=== PATIENT | male | born 1975 | race Caucasian/White ===

== ENCOUNTER 2019-06-24 12:05 | Inpatient (IN) | payer OTHER ==
[2019-06-24] MEDS ORDERED: morphine CARPU-JECT 4 MG/1 ML DISP.SYRIN IVPUSH ONE ×3 (12:38→18:09)
--- NOTE | 2019-06-24 12:45 | PDOC ---
History of Present Illness - General Chief Complaint: Pain Stated Complaint: ANAL PAIN Time Seen by Provider: 06/24/19 12:20 History Source: Patient Exam Limitations: No Limitations - History of Present Illness Initial Comments: 06/24/19 12:39 HISTORY OF PRESENT ILLNESS: 43-year-old male denies medical history presents emergency department for evaluation of perirectal pain worsening over the past 4 days. Patient has been using [id number] hydrocortisone cream with lidocaine which is been mildly successful in pain relief. Patient reports pain returns after approximately 1.5 hours. Reports having hard stools over the past 3 days. Patient has not had to strain to move his bowels. Patient reports subjective fevers. I present patient is unable to sit down due to pain. He denies any rectal bleeding. No recent travel or sick contacts. PAST MEDICAL HISTORY: Denies past medical history SURGICAL HISTORY: Denies ALLERGIES: No known drug allergies REVIEW OF SYSTEMS General/Constitutional: Denies fever or chills. Denies weakness, weight change. HEENT: Denies change in vision. Denies ear pain or discharge. Denies sore throat. Cardiovascular: Denies chest pain or shortness of breath. Respiratory: Denies cough, wheezing, or hemoptysis. Gastrointestinal: see HPI Genitourinary: Denies dysuria, frequency, or change in urination. Musculoskeletal: Denies joint or muscle swelling or pain. Denies neck or back pain. Skin and breasts: Denies rash or easy bruising. Neurologic: Denies headache, vertigo, loss of consciousness, or loss of sensation. Psychiatric: Denies depression or anxiety. Endocrine: Denies increased thirst. Denies abnormal weight change. Hematologic/Lymphatic: Denies anemia, easy bleeding, or history of blood clots. Allergic/Immunologic: Denies hives or skin allergy. Denies latex allergy. PHYSICAL EXAM General Appearance: Well-appearing, appropriately dressed. No apparent distress , no intoxication. Respiratory/Chest: Lungs CTAB. No shortness of breath, chest tenderness, respiratory distress, accessory muscle use. No crackles, rales, rhonchi, stridor , wheezing, dullness Cardiovascular: RRR. S1, S2. No JVD, murmur, bradycardia, tachycardia. Vascular Pulses: Dorsalis-Pedis (R): 2+, Dorsalis-Pedis (L): 2+ Gastrointestinal/Abdominal: Normal bowel sounds. Abdomen soft, non-distended. No tenderness or rebound tenderness. No organomegaly, pulsatile mass, guarding, hernia, hepatomegaly, splenomegaly. Rectal: External hemorrhoid present at the 9 o'clock position. No evidence of fibrosis noted. Swelling present to the gluteal fold over the left buttock. Approximate 0.5 palpable mass present at the 9 o'clock position approximately 1 cm from the hemorrhoid. Increased tenderness upon palpation. No fluctuance noted. No internal hemorrhoids have been palpated. Prostate is within normal limits. Lymphatic: Left perirecta lymphadenopathy with tenderness. 06/24/19 12:46 06/24/19 12:59 Past History - Past Medical History Allergies/Adverse Reactions: Allergies Allergy/AdvReac Type Severity Reaction Status Date / Time No Known Allergies Allergy Verified 06/24/19 12:11 Home Medications: Ambulatory Orders NK [No Known Home Medication] 06/24/19 COPD: No - Suicide/Smoking/Psychosocial Hx Smoking History: Never smoked *Physical Exam - Vital Signs Last Vital Signs Temp Pulse Resp BP Pulse Ox 98.9 F 100 H 18 147/101 H 96 06/24/19 12:13 06/24/19 12:13 06/24/19 12:13 06/24/19 12:13 06/24/19 12:13 ED Treatment Course - LABORATORY CBC & Chemistry Diagram: 06/25/19 08:15 06/25/19 08:15 Medical Decision Making - Medical Decision Making 06/24/19 12:45 A/P: 43-year-old male with perirectal pain for 4 days Differential diagnoses includes hemorrhoid with potential abscess CBC, BMP Morphine [address] pelvis with IV contrast 06/24/19 14:18 CT scan is read by Dr. Parker: There is a small air and fluid collection slightly posterior to the anus measuring approximately 2.0 x 0.8 x 1.2 cm. This does correspond to the clinical history of a small abscess. No pelvic masses or fluid collections are identified. There is no evidence of pelvic lymphadenopathy. There is a 2 cm cyst within the lower pole of the right kidney. I will call surgery for consult. 06/24/19 15:27 Second page placed. 06/24/19 15:53 Case is been discussed with Dr. Gruber will come to the emergency department to evaluate patient. Morphine 4 mg IV now 06/24/19 20:10 Case has been discussed with Dr. Gruber. Admit to hospitalist with surgery consult. Blood cx Unasyn 3g IV Admit 06/24/19 21:04 Case is been discussed with Dr. Tomlinson of the hospitalist service who accepts patient for inpatient admission. *DC/Admit/Observation/Transfer Diagnosis at time of Disposition: Jolanta-rectal abscess - Discharge Dispostion Condition at time of disposition: Good Decision to Admit order: Yes - Referrals - Patient Instructions - Post Discharge Activity
[2019-06-24] MEDS ORDERED: morphine SULFATE 4 MG/ML VIAL ONE ×3 (12:47→18:21)
[2019-06-24 13:01] LABS: BASO % 0.6 % (0-2.0); EOS % 1.3 % (0-4.5); HEMATOCRIT 45.9 % (35.4-49); LYMPH % 20.3 % (8-40); MCHC 34.9 g/dl (32.0-35.9); MEAN CELL VOLUME 88.7 fl (80-96); MEAN PLT VOLUME 8.2 fl (7.5-11.1); MONO % 9.5 % (3.8-10.2); NEUT % 68.3 % (42.8-82.8); PLATELET COUNT 271 K/MM3 (134-434); RBC 5.18 M/mm3 (4.00-5.60); RDW 12.4 % (11.9-15.9); WHITE BLOOD COUNT 9.7 K/mm3 (4.0-10.0)
[2019-06-24 13:19] LABS: BLOOD UREA NITROGEN 11.4 mg/dL (7-18); CALCIUM 9.9 mg/dL (8.5-10.1); CREATININE 0.9 mg/dL (0.55-1.3); POTASSIUM 4.3 mmol/L (3.5-5.1)
[2019-06-24] MEDS ORDERED: AMPICILLIN NA/SULBACTAM NA 3 GM in SODIUM CHLORIDE 100 ML IVPB ONE (20:07)
--- NOTE | 2019-06-24 20:55 | CONSULT ---
Consult Consult Specialty:: General surgery Reason for Consultation:: perianal abscess vs hemorrhoid - History of Present Illness Chief Complaint: perianal pain History of Present Illness: 43 yo male PMH obesity depression and anxiety presents emergency department for evaluation of perirectal pain worsening over the past 4 days. Patient has been using kmft-pig-gzixyol hydrocortisone cream with lidocaine which is been mildly successful in pain relief. Patient reports pain returns after approximately 1.5 hours. Reports having hard stools over the past 3 days. Patient has not had to strain to move his bowels. Patient reports subjective fevers. I present patient is unable to sit down due to pain. He denies any rectal bleeding. we were called to assess. - History Source History Provided By: Patient, Medical Record Limitations to Obtaining History: No Limitations - Past Medical History Additional Medical History: obesity - Smoking History Smoking history: Never smoked Home Medications - Allergies Allergies/Adverse Reactions: Allergies Allergy/AdvReac Type Severity Reaction Status Date / Time No Known Allergies Allergy Verified 06/24/19 12:11 - Home Medications Home Medications: Ambulatory Orders NK [No Known Home Medication] 06/24/19 Review of Systems - Review of Systems Constitutional: denies: Chills, Fever Eyes: denies: Blind Spots, Recent Change in Vision HENT: denies: Difficult Swallowing, Throat Pain Neck: denies: Decreased ROM, Tenderness Cardiovascular: denies: Chest Pain, Palpitations Respiratory: denies: Cough, SOB Gastrointestinal: reports: Constipation. denies: Abdominal Pain, Diarrhea, Nausea Genitourinary: denies: Discharge, Dysuria Breasts: reports: No Symptoms Reported. denies: Pain Musculoskeletal: denies: Joint Swelling, Muscle Pain Integumentary: denies: Lesions, Rash Neurological: denies: Seizure, Syncope Endocrine: denies: Unexplained Weight Gain, Unexplained Weight Loss Hematology/Lymphatic: denies: Easily Bruised, Excessive Bleeding Psychiatric: reports: Anxiety, Depression Physical Exam Vital Signs: Vital Signs Temperature 98.5 F 06/24/19 15:34 Pulse Rate 88 06/24/19 15:34 Respiratory Rate 06/24/19 15:34 Blood Pressure 133/68 06/24/19 15:34 O2 Sat by Pulse Oximetry (%) 100 06/24/19 15:34 Constitutional: Yes: Well Nourished, No Distress, Calm, Obese Eyes: Yes: Conjunctiva Clear, EOM Intact HENT: Yes: Atraumatic, Normocephalic Neck: Yes: Supple, Trachea Midline Cardiovascular: Yes: Regular Rate and Rhythm, S1, S2 Respiratory: Yes: Regular, CTA Bilaterally Gastrointestinal: Yes: Normal Bowel Sounds, Soft, Abdomen, Obese. No: Tenderness ...Rectal Exam: Yes: Hemorrhoids/External, Hemorrhoids/Internal, Induration, Sphincter Tone Normal. No: Erythema, Inflammation, Mass Renal/: No: CVA Tenderness - Left, CVA Tenderness - Right Breast(s): No: Mass, Skin Changes Musculoskeletal: No: Joint Stiffness, Joint Swelling Extremities: No: Cool, Cyanosis Edema: No Peripheral Pulses WNL: Yes Integumentary: No: Jaundice, Rash Neurological: Yes: Alert, Oriented Psychiatric: Yes: Alert, Oriented Labs: CBC, BMP 06/24/19 12:45 06/24/19 12:45 Imaging - Results Cat Scan: Report Reviewed, Image Reviewed Problem List - Problems (1) Internal thrombosed hemorrhoids Assessment/Plan: 43yo male with thrombosed hemorrhoid left perianal area Bedside procedure adequate analgesia GI for bowel regimen - (fiber and water, topical lidocaine, colace?) Discussed with patient risks, benefits and alternatives of laparoscopic possible open ectomy, including but not limited to bleeding, infection, injury to adjacent structures, leak or injury, intraabdominal abscess, incisional hernia, need for further procedures, ; alternatives include antibiotics, delayed or no surgery - risks of this include failure of nonoperative therapy, perforation, sepsis, recurrence, . Patient desires to proceed with operation - will take to OR for above. Informed consent signed for same. Remove dressing with first bowel movement Sits baths X2 weeks Discharge at the discretion of the pirmary team Code(s): K64.5 - PERIANAL VENOUS THROMBOSIS (2) Thrombosed external hemorrhoid Code(s): K64.5 - PERIANAL VENOUS THROMBOSIS (3) Perianal pain Code(s): K62.89 - OTHER SPECIFIED DISEASES OF ANUS AND RECTUM (4) Obesity (BMI 30-39.9) Code(s): E66.9 - OBESITY, UNSPECIFIED
--- NOTE | 2019-06-24 20:55 | PROC ---
Incision and Drainage Indication/Location: painful perianal mass Risks and Benefits Explained: Yes Consent on Chart: Yes Betadine cleansed: Yes Anesthesia: 1% Lidocaine w/ Epi Blade Size: 15 Drainage: hematoma, not really purulent Irrigated with Normal Saline: Yes Plain packing: Yes Sterile Dressing Applied: Yes - Remarks Remarks: left perianal, 10 oclock position , clot expressed, thrombosed hemoroid
--- NOTE | 2019-06-24 21:29 | PN ---
Teaching Attending Note ATTENDING PHYSICIAN STATEMENT I saw and evaluated the patient. I reviewed the resident's note and discussed the case with the resident. I agree with the resident's findings and plan as documented. Seen and examined; please refer to resident note for further history. Found to have perirectal abscess; being drained by Dr. Gruber. Hemodynamically stable. VS, labs, imaging reviewed NAD, AAO, resting in bed NC AT EOMI PERRLA RRR s1/2 Lungs CTAB, w/ sym exp NT ND +BS CN2-12 wnl, no fnd EKG reviewed CT pelvis reviewed; small air and fluid collection posterior to anus c/w abscess ASSESSMENT AND PLAN: # Perianal abscess POD #0 -Dr. Gruber to eval for bedside vs. OR drainage. Following abx recs. Monitor on floor. Pain control, npo. Consider triggering factors (ie DM likely and # DM with hyperglycemia likely -gluc 200s with obesity, etc. Check A1c. Fsg monitor; if persistently elevated SSI (keep in mind insulin naieve so low dose). Lipids, etc. can be done OP. Consider Metformin on DC, # Obesity (BMI>35) # Hemorrhoids (noted; FU OP with sgy) Full Code
[2019-06-24] MEDS ORDERED: ACETAMINOPHEN 325 MG TABLET (FP) PO PRN (22:07)
[2019-06-24] MEDS ORDERED: LIDOCAINE 1%/EPI 1:100000 (20 ML MULTI DOSE VIAL) IJ ONE (22:10)
[2019-06-24] MEDS ORDERED: LIDOCAINE 1%/EPI 1:100000 (20 ML MULTI DOSE VIAL) ONE (22:14)
[2019-06-24] MEDS ORDERED: LORazepam 2 MG/ML SDV VIAL IVPUSH ONE (22:15)
[2019-06-24] MEDS ORDERED: LORazepam 2 MG/ML SDV VIAL ONE (22:17)
--- NOTE | 2019-06-24 22:51 | HP ---
CHIEF COMPLAINT: Anal pain PCP: HISTORY OF PRESENT ILLNESS: 43 y/o M, pmh of previous hemorrhoid-last week, presents to the ED c/o of non- radiating, constant, pain and tenderness in the phyllis-rectal region of 4 days duration, that has worsened since onset, accompanied by chills this morning. Pt said that the pain started on friday and he had assumed it was an hemorrhoid and treated it conservatively; however, the symptoms persisted and worsened which prompted him to come to the ED. He denies sob, chest pain, back pain, drainage, pus, difficulty passing bowel, melena, hematochezia. ROS is negative. ER course was notable for: (1) Unasyn given (2)CT w/ IV contrast- air and fluid collection 2x.8x1.2 (3)Morphine given Recent Travel: denies PAST MEDICAL HISTORY: denies PAST SURGICAL HISTORY: Gallbladder removal 2018 Hernia repair- 10 years ago Social History: Smoking: denies Alcohol: occasional Drugs: ayad Family History: Mother- DM Allergies No Known Allergies Allergy (Verified 06/24/19 12:11) HOME MEDICATIONS: Home Medications Medication Instructions Recorded NK [No Known Home Medication] 06/24/19 REVIEW OF SYSTEMS CONSTITUTIONAL: Admits: chills, Absent: fever, diaphoresis, generalized weakness, malaise, loss of appetite, weight change CARDIOVASCULAR: Absent: chest pain, syncope, palpitations, irregular heart rate, lightheadedness , peripheral edema RESPIRATORY: Absent: cough, shortness of breath, dyspnea with exertion, orthopnea, wheezing, stridor, hemoptysis GASTROINTESTINAL: Absent: abdominal pain, abdominal distension, nausea, vomiting, diarrhea, constipation, melena, hematochezia GENITOURINARY: Admits: Phyllis-rectal tenderness, redness, swelling Absent: dysuria, frequency, urgency, hesitancy, hematuria, flank pain, MUSCULOSKELETAL: Absent: myalgia, arthralgia, joint swelling, back pain, neck pain SKIN: Absent: rash, itching, pallor NEUROLOGIC: Absent: headache, bladder or bowel incontinence PSYCHIATRIC: Absent: anxiety PHYSICAL EXAMINATION Vital Signs - 24 hr Last Vital Signs Temp Pulse Resp BP Pulse Ox 98.5 F 88 19 127/68 100 06/24/19 22:38 06/24/19 22:38 06/24/19 22:38 06/24/19 22:38 06/24/19 22:38 GENERAL: Awake, alert, and fully oriented, in no acute distress. EYES: Pupils equal, round and reactive to light, extraocular movements intact LUNGS: Breath sounds equal, clear to auscultation bilaterally. No wheezes, and no crackles. HEART: Regular rate and rhythm, normal S1 and S2 without murmur, rub or gallop. ABDOMEN: Soft, nontender, not distended, normoactive bowel sounds, no guarding, no rebound, no masses. No hepatomegaly or splenomegaly. Rectal: Large hemorrhoid present at the 9 o'clock position, left buttocks containing swelling including the gluteal fold. Palpable mass present at the 9 o 'clock position 1 cm from the hemorrhoid. Increased tenderness upon palpation. No fluctuance, no drainage noted. PSYCHIATRIC: Cooperative. Good eye contact. Appropriate mood and affect. Laboratory Results - last 24 hr CBC, BMP 06/24/19 12:45 06/24/19 12:45 ASSESSMENT/PLAN: 43 y/o M, pmh of previous hemorrhoid-last week, presents to the ED w/ a perirectal abscess #Perirectal Abscess CT pelvis w/ contrast- small air and fluid collection posterior to the anus 2x.8x1.2, small abscess Case discussed w/ Dr. Gruber If superficial on evaluation- will be drained bedside If deep on evaluation- will go to the OR Continue Unasyn Metronidazole 500 mg given LR 75 mls/hr #Hyperglycemia f/u A1c If A1c elevated- uncontrolled gluc can be attributed to the perirectal abscess Recommend educating pt on diet control, weight loss and exercise f/u PCP for DM workup #DVT ppx SCDs b/l legs FEN: NPO due to possible surgery in am Dispo: f/u on surgery decision for drainage, symptomatic management Visit type - Emergency Visit Emergency Visit: Yes ED Registration Date: 06/24/19 Care time: The patient presented to the Emergency Department on the above date and was hospitalized for further evaluation of their emergent condition. - New Patient This patient is new to me today: Yes Date on this admission: 06/28/19 - Critical Care Critical Care patient: No ATTENDING PHYSICIAN STATEMENT I saw and evaluated the patient. I reviewed the resident's note and discussed the case with the resident. I agree with the resident's findings and plan as documented. SUBJECTIVE: OBJECTIVE: ASSESSMENT AND PLAN:
[2019-06-25] MEDS: AMPICILLIN NA/SULBACTAM NA 3 GM in SODIUM CHLORIDE 100 ML IVPB SCH ×2 (02:48→09:16)
[2019-06-25 05:20] VITALS: BMI 35.2
[2019-06-25] MEDS ORDERED: LACTATED RINGERS SOLUTION 1,000 ML/1,000 ML INFUS.BAG IV SCH (06:00)
--- NOTE | 2019-06-25 06:40 | PN ---
Physical Exam: SUBJECTIVE: Patient seen and examined OBJECTIVE: Vital Signs Period Temp Pulse Resp BP Sys/Hough Pulse Ox Last 24 Hr 98.5 F-99.5 F 88-101 18-20 127-147/68-101 96-100 GENERAL: The patient is awake, alert, and fully oriented, in no acute distress. HEAD: Normal with no signs of trauma. EYES: PERRL, extraocular movements intact, sclera anicteric, conjunctiva clear. No ptosis. ENT: Ears normal, nares patent, oropharynx clear without exudates, moist mucous membranes. NECK: Trachea midline, full range of motion, supple. LUNGS: Breath sounds equal, clear to auscultation bilaterally, no wheezes, no crackles, no accessory muscle use. HEART: Regular rate and rhythm, S1, S2 without murmur, rub or gallop. ABDOMEN: Soft, nontender, nondistended, normoactive bowel sounds, no guarding, no rebound, no hepatosplenomegaly, no masses. EXTREMITIES: 2+ pulses, warm, well-perfused, no edema. NEUROLOGICAL: Cranial nerves II through XII grossly intact. Normal speech, gait not observed. PSYCH: Normal mood, normal affect. SKIN: Warm, dry, normal turgor, no rashes or lesions noted Laboratory Results - last 24 hr 06/24/19 06/24/19 12:45 12:45 WBC 9.7 RBC 5.18 Hgb 16.0 Hct 45.9 MCV 88.7 MCH 31.0 MCHC 34.9 RDW 12.4 Plt Count 271 MPV 8.2 Absolute Neuts (auto) 6.6 Neutrophils % 68.3 Lymphocytes % 20.3 Monocytes % 9.5 Eosinophils % 1.3 Basophils % 0.6 Nucleated RBC % 0 Sodium 137 Potassium 4.3 Chloride 102 Carbon Dioxide 26 Anion Gap 10 BUN 11.4 Creatinine 0.9 Est GFR (CKD-EPI)AfAm 119.13 Est GFR (CKD-EPI)NonAf 102.79 Random Glucose 292 H Calcium 9.9 Active Medications Generic Name Dose Route Start Last Admin Trade Name Freq PRN Reason Stop Dose Admin Acetaminophen 650 mg 06/24/19 22:07 Tylenol - PO Q4H PRN PAIN LEVEL 1-5 Ampicillin Sodium/Sulbactam 100 mls @ 200 mls/hr 06/25/19 03:00 06/25/19 02: 48 Sodium 3 gm/ Sodium Chloride IVPB 200 mls/hr Q6H-IV BENJAMÍN Administration Lactated Ringer's 1,000 ml in 1,000 mls @ 75 mls/hr 06/25/19 06:00 Lactated Ringers Solution IV ASDIR BENJAMÍN Morphine Sulfate 2 mg 06/24/19 22:07 Morphine Sulfate IVPUSH Q4H PRN PAIN LEVEL 6-10 ASSESSMENT/PLAN: 43 y/o M, PMH of previous hemorrhoid-last week, presents to the ED c/o of non- radiating, constant, pain and tenderness in the phyllis-rectal region of 4 days duration, that has worsened since onset, accompanied by chills this morning. Pt said that the pain started on friday and he had assumed it was an hemorrhoid and treated it conservatively; however, the symptoms persisted and worsened which prompted him to come to the ED. He denies sob, chest pain, back pain, drainage, pus, difficulty passing bowel, melena, hematochezia. ROS is negative. ER course was notable for: (1) Unasyn given (2)CT w/ IV contrast- air and fluid collection 2x.8x1.2 (3)Morphine given PAST SURGICAL HISTORY: Gallbladder removal 2018 Hernia repair- 10 years ago Social History: Smoking: denies Alcohol: occasional Drugs: denies 43 y/o M, pmh of previous hemorrhoid-last week, presents to the ED w/ a perirectal abscess #Perirectal Abscess - CT pelvis w/ contrast- small air and fluid collection posterior to the anus 2x.8x1.2, small abscess - Case discussed w/ Dr. Gruber, if superficial: drain at bedside, if deep:drain in ER - Continue Unasyn - Metronidazole 500 mg given - R/L 75 mls/hr #Hyperglycemia - HbA1c pending - f/u PCP for DM workup #DVT PE - SCDs #FEN: - NPO due to possible surgery in am #Dispo - F/U on surgery decision for drainage, symptomatic management ATTENDING PHYSICIAN STATEMENT I saw and evaluated the patient. I reviewed the resident's note and discussed the case with the resident. I agree with the resident's findings and plan as documented. SUBJECTIVE: OBJECTIVE: ASSESSMENT AND PLAN:
--- NOTE | 2019-06-25 07:47 | PN ---
Teaching Attending Note Name of Resident: Jamarcus Dangelo ATTENDING PHYSICIAN STATEMENT I saw and evaluated the patient. I reviewed the resident's note and discussed the case with the resident. I agree with the resident's findings and plan as documented. SUBJECTIVE: Still c/o rectal pain but less OBJECTIVE: Vital Signs Temperature 99.5 F 06/24/19 22:45 Pulse Rate 101 H 06/24/19 22:45 Respiratory Rate 20 06/24/19 22:45 Blood Pressure 135/87 06/24/19 22:45 O2 Sat by Pulse Oximetry (%) 100 06/24/19 22:38 HEENT: Mm moist, no anemia, PERRLA EOMI NECK: No JVd No Bruit CHEST: CTA B/L CVS: s/s2 R no m/g/r ABD: No distention non tender EXT: No halley afeet, no calf tenderness SACK LIFTER: AOX3 non focal Rectal Exam; s/p Hemmorhoidectomy CBC, BMP 06/25/19 08:15 06/25/19 08:15 Active Medications Acetaminophen (Tylenol -) 650 mg PO Q4H PRN PRN Reason: PAIN LEVEL 1-5 Ampicillin Sodium/Sulbactam (Sodium 3 gm/ Sodium Chloride) 100 mls @ 200 mls/ hr IVPB Q6H-IV BENJAMÍN Last Admin: 06/25/19 02:48 Dose: 200 mls/hr Lactated Ringer's (Lactated Ringers Solution) 1,000 ml in 1,000 mls @ 75 mls/ hr IV ASDIR BENJAMÍN Last Admin: 06/25/19 06:38 Dose: 75 mls/hr Morphine Sulfate (Morphine Sulfate) 2 mg IVPUSH Q4H PRN PRN Reason: PAIN LEVEL 6-10 ASSESSMENT AND PLAN:43 y/o M, PMH of previous hemorrhoid-last week, presents to the ED c/o of non-radiating, constant, pain and tenderness in the phyllis-rectal region of 4 days duration, that has worsened since onset, accompanied by chills this morning Problem List - Problems (1) Thrombosed external hemorrhoid Assessment/Plan: as per operating surgeon patient is cleared to Dc home on Laxative and bowel regimen add Coliace and miralax add Motrin for pain consider short course of augmentin or Keflex F/U Surgery Dc order and patient will F/U with his PMD/ Surgery in a wk. Code(s): K64.5 - PERIANAL VENOUS THROMBOSIS (2) Obesity (BMI 30-39.9) Assessment/Plan: wrt reduction as out patient Code(s): E66.9 - OBESITY, UNSPECIFIED (3) New onset type 2 diabetes mellitus Assessment/Plan: Low Glycemic diet F/U HBA1C add Metformin 500 mg BID Code(s): E11.9 - TYPE 2 DIABETES MELLITUS WITHOUT COMPLICATIONS
[2019-06-25 08:58] LABS: BASO % 0.4 % (0-2.0); HEMATOCRIT 41.8 % (35.4-49); HEMOGLOBIN 14.6 GM/dL (11.7-16.9); LYMPH % 16.2 % (8-40); MCH 31.1 pg (25.7-33.7); MEAN CELL VOLUME 88.6 fl (80-96); MEAN PLT VOLUME 8.1 fl (7.5-11.1); MONO % 9.8 % (3.8-10.2); NEUT % 72.6 % (42.8-82.8); PLATELET COUNT 256 K/MM3 (134-434); RBC 4.72 M/mm3 (4.00-5.60); RDW 12.4 % (11.9-15.9); WHITE BLOOD COUNT 9.2 K/mm3 (4.0-10.0)
[2019-06-25] MEDS ORDERED: PT OWN MED DRAWER 7, Y5N ONE (09:38)
[2019-06-25 09:43] LABS: ALBUMIN 3.7 g/dl (3.4-5.0); BILIRUBIN,TOTAL 2.1 mg/dL (0.2-1); BLOOD UREA NITROGEN 8.6 mg/dL (7-18); CALCIUM 9.3 mg/dL (8.5-10.1); CREATININE 0.9 mg/dL (0.55-1.3); TOT PROT 7.1 g/dl (6.4-8.2)
[2019-06-25] MEDS: MORPHINE SULFATE 2 MG/ML VIAL IVPUSH PRN ×2 (12:03→16:00)
[2019-06-25] MEDS ORDERED: IBUPROFEN 600 MG TABLET (FP) PO PRN (12:39)
[2019-06-25] MEDS ORDERED: metFORMIN HCL 500 MG TABLET (FP) PO SCH (16:30)
[2019-06-25] MEDS ORDERED: AMOX TR/POT CLAV 875MG/125MG TABLETS (FP) PO SCH (17:30)
--- NOTE | 2019-06-25 17:45 | DS ---
Physical Exam: SUBJECTIVE: Patient seen and examined by the bedside. AOx3 OBJECTIVE: Vital Signs Period Temp Pulse Resp BP Sys/Hough Pulse Ox Last 24 Hr 98.1 F-99.5 F 88-101 19-20 127-137/68-87 100-100 PHYSICAL EXAM GENERAL: The patient is awake, alert, and fully oriented, in pain HEAD: Normal with no signs of trauma. EYES: PERRL, extraocular movements intact, sclera anicteric, conjunctiva clear. ENT: Ears normal, nares patent, oropharynx clear without exudates, moist mucous membranes. NECK: Trachea midline, full range of motion, supple. LUNGS: Breath sounds equal, clear to auscultation bilaterally, no wheezes, no crackles, no accessory muscle use. HEART: Regular rate and rhythm, S1, S2 without murmur, rub or gallop. ABDOMEN: Soft, nontender, nondistended, normoactive bowel sounds, no guarding, no rebound, no hepatosplenomegaly, no masses. Pain in phyllis-anal area 9/10, bandage over area. EXTREMITIES: 2+ pulses, warm, well-perfused, no edema. NEUROLOGICAL: Cranial nerves II through XII grossly intact. Normal speech, gait not observed. PSYCH: Normal mood, normal affect. SKIN: Warm, dry, normal turgor, no rashes or lesions noted. LABS Laboratory Results - last 24 hr 06/25/19 06/25/19 06/25/19 08:15 08:15 08:15 WBC 9.2 RBC 4.72 Hgb 14.6 Hct 41.8 MCV 88.6 MCH 31.1 MCHC 35.0 RDW 12.4 Plt Count 256 MPV 8.1 Absolute Neuts (auto) 6.7 Neutrophils % 72.6 Lymphocytes % 16.2 D Monocytes % 9.8 Eosinophils % 1.0 Basophils % 0.4 Nucleated RBC % 0 Sodium 135 L Potassium 4.0 Chloride 101 Carbon Dioxide 27 Anion Gap 7 L BUN 8.6 Creatinine 0.9 Est GFR (CKD-EPI)AfAm 119.13 Est GFR (CKD-EPI)NonAf 102.79 Random Glucose 310 H* Hemoglobin A1c % 11.1 H Calcium 9.3 Total Bilirubin 2.1 H AST 30 ALT 66 H Alkaline Phosphatase 115 Total Protein 7.1 Albumin 3.7 HOSPITAL COURSE: Date of Admission:06/24/19 43 y/o M, PMH of previous hemorrhoid-last week, presents to ER complaining of of non-radiating, constant, pain and tenderness in the perianal region for 4 days, accompanied by chills this morning. Denies sob, chest pain, back pain, drainage, pus, melena, hematochezia. ER course: (1) Unasyn, Flagyl (2) CT w contrast: air and fluid collection 2x.8x1.2 (3) Morphine Date of Discharge: 06/25/19 43 y/o M, pmh of previous hemorrhoid-last week, presents to the ED w/ a perirectal abscess #Perirectal Abscess - Drained at bedside - CT w contrast: air and fluid collection 2x.8x1.2 - Unasyn - R/L 75 mls/hr #Hyperglycemia - Random glucose 292, 310 - HbA1c pending - F/U outpatient for DM management plan #DVT PE - SCDs #FEN: - regular diet Discharge Summary Reason For Visit: PERIRECTAL ABSCESS Current Active Problems Internal thrombosed hemorrhoids (Acute) New onset type 2 diabetes mellitus (Acute) Obesity (BMI 30-39.9) (Acute) Perianal pain (Acute) Thrombosed external hemorrhoid (Acute) Condition: Good - Instructions Diet, Activity, Other Instructions: Postoperative instructions: You had a Incision and Drainage of Thrombosed Hemorrhoid on 06/24/[address] Timbo Dalal of [facility]. Activity: Resume your usual activities gradually, but no heavy exertion or lifting more than 10-15 pounds for 4-6 weeks. Remove dressings with first bowel movement if they are not already off. You may shower daily starting then, just pat the incision areas dry. No bath or swimming until skin incisions have healed. Eat lightly at first, but advance to your usual diet as tolerated. Medications: Please take the following medications: -To prevent infection, please take Augmentin by mouth twice a day (one in the morning and one in the evening) for 5 days. -To control your high blood sugar levels, please take Metformin 500mg by mouth twice a day -Please take Colace by mouth once a day for 1 month -Please take Miralax by mouth once a day for 1 week Pain: For pain, you may use and alternate Tylenol (acetaminophen) 1-2 pills and/ or ibuprofen 200 mg (1-3 pills) every 6 hours each as needed; this means that you can take one OR the other at 3-hour intervals. If you are prescribed a Tylenol/narcotic combination for severe pain, use it instead of plain Tylenol as needed and switch back when your pain starts decreasing. Do not take more than 4000 mg of acetaminophen in a day. Take medications as prescribed or indicated on the labeling. Follow-up: Call Dr. Gruber' office at [phone] to make your postop appointment (Friday in approximately 2 weeks after surgery as advised). Clinic is held in the [facility] on the first floor of [facility]. Call the office if you have: * increasing pain not responsive to pain medication * fever of 101F or higher * vomiting * unusual or increasing bleeding or drainage from wounds * increasing redness or swelling at wound sites * inability to urinate Also, see your primary medical doctor within 1-2 weeks. If you do not have one, you can make an appointment with Dr. Dangelo at [facility] [place] in the [facility] Referrals: Timbo Gruber MD [Staff Physician] - Jamarcus Dangelo RES [Resident] - Disposition: HOME - Home Medications Comprehensive Discharge Medication List: Ambulatory Orders Amox-Tr/K Cl [Augmentin 875-125mg Tablet -] 1 tab PO BID@0800,1730 #10 tablet Docusate Sodium [Colace -] 100 mg PO DAILY #30 capsule 06/25/19 Ibuprofen [Motrin -] 600 mg PO Q8H PRN #20 tablet 06/25/19 Polyethylene Glycol 3350 [Miralax 119 gm Btl -] 17 gm PO DAILY 30 Days #30 bottle 06/25/19 metFORMIN HCL [Glucophage -] 500 mg PO BID@0700,1630 #60 tablet 06/25/19 ATTENDING PHYSICIAN STATEMENT I saw and evaluated the patient. I reviewed the resident's note and discussed the case with the resident. I agree with the resident's findings and plan as documented. SUBJECTIVE: OBJECTIVE: ASSESSMENT AND PLAN:
[2019-06-25 18:50] VITALS: BP 109/73; PULSE 92; TEMP 98.7
[2019-06-26] MEDS ORDERED: POLYETHYLENE GLYCOL 3350 119 GM BTL PO SCH (10:00)
[2019-06-26] MEDS ORDERED: DOCUSATE SODIUM 100 MG CAPSULE (FP) PO SCH (10:00)
== END 2019-06-25 19:23 | disposition home or self-care (01) | DRG 395 ==
LOC: JERFT 12:05 → JER 12:05 → JERBED 21:04 → J5S 22:48
PROVIDERS: ADMIT Internal Medicine; ATTEND Internal Medicine
PROC: 0D9Q3ZZ Drainage of Anus, Percutaneous Approach (ICD-10-PCS; principal; 2019-06-24)
DX: K64.5 Perianal venous thrombosis (principal); E66.9 Obesity, unspecified; F41.8 Other specified anxiety disorders; Z68.35 Body mass index [BMI] 35.0-35.9, adult; E11.65 Type 2 diabetes mellitus with hyperglycemia
CPT/HCPCS: 36415; 72193-TC; 80048; 80053; 83036; 85025; 87040; 99284-25